=== PATIENT | male | born 1975 | race Asian ===

== ENCOUNTER 2017-03-06 15:11 | Emergency (ER) | payer OTHER ==
[~2017-03-06] VITALS: Ht 175.3 cm; Wt 95.3 kg
[~2017-03-06 15:11] MED LIST: AMOX500C85 PO; CEPACOL CGH1 LOZ MT; CLOTCRE5 EX; LISI10TA11 PO; METFORMIN ER1000 MG; MUCINEX600 MG OR; Z-PAK PO
[2017-03-06 15:47] VITALS: BP 135/78; TEMP 99.2
== END 2017-03-06 15:47 | disposition home or self-care (01) ==
LOC: ED 15:11
DX: R19.7 Diarrhea, unspecified (principal); K52.9 Noninfective gastroenteritis and colitis, unspecified
CPT/HCPCS: 99281

== ENCOUNTER 2017-04-22 11:07 | Outpatient (CLI) | payer OTHER ==
[2017-04-22 12:19] LABS: PLATELET COUNT 463 K/uL (142-355)
[2017-04-22 12:43] LABS: POTASSIUM 5.6 mmol/L (3.6-5.2); SODIUM 140 mmol/L (136-145)
== END 2017-04-22 17:53 | disposition home or self-care (01) ==
LOC: LABW 11:07
PROVIDERS: Internal Medicine
DX: I10 Essential (primary) hypertension (principal); R42 Dizziness and giddiness; E11.9 Type 2 diabetes mellitus without complications; M10.9 Gout, unspecified
CPT/HCPCS: 36415; 80053; 80061; 81000; 82043; 82570; 83036; 84443; 84550; 85027

== ENCOUNTER 2018-01-28 09:08 | Outpatient (CLI) | payer OTHER | END 2018-01-28 19:21 | disposition home or self-care (01) | LOC: RAD 09:08 | DX: J40 Bronchitis, not specified as acute or chronic (principal); J01.00 Acute maxillary sinusitis, unspecified ==

== ENCOUNTER 2018-04-08 16:06 | Outpatient (CLI) | payer OTHER ==
[2018-04-08 16:18] LABS: PLATELET COUNT 454 K/uL (142-355)
[2018-04-08 16:46] LABS: POTASSIUM 4.9 mmol/L (3.6-5.2)
== END 2018-04-08 19:21 | disposition home or self-care (01) ==
LOC: LABW 16:06
PROVIDERS: Physician Assistant
DX: R25.2 Cramp and spasm (principal); E11.9 Type 2 diabetes mellitus without complications
CPT/HCPCS: 36415; 80053; 83036; 84439; 84443; 85027

== ENCOUNTER 2018-10-24 09:52 | Outpatient (CLI) | payer OTHER ==
[2018-10-24 10:09] LABS: PLATELET COUNT 471 K/uL (142-355)
[2018-10-24 10:31] LABS: POTASSIUM 4.7 mmol/L (3.6-5.2)
== END 2018-10-24 20:22 | disposition home or self-care (01) ==
LOC: LABW 09:52
PROVIDERS: Physician Assistant
DX: I10 Essential (primary) hypertension (principal); E11.9 Type 2 diabetes mellitus without complications; D50.9 Iron deficiency anemia, unspecified
CPT/HCPCS: 36415; 80053; 83036; 84153; 85027

== ENCOUNTER 2023-03-30 19:09 | Emergency (ER) | payer OTHER ==
[~2023-03-30] VITALS: Ht 180.3 cm; Wt 106.6 kg
[2023-03-30 19:15] VITALS: TEMP 98.8
[2023-03-30 20:24] LABS: PLATELET COUNT 400 K/uL (142-355)
[2023-03-30 20:37] LABS: POTASSIUM 3.9 mmol/L (3.6-5.2)
[2023-03-30 21:25] VITALS: BP 156/87
== END 2023-03-30 21:25 | disposition home or self-care (01) ==
LOC: ED 19:09
PROVIDERS: Family Medicine
DX: M10.9 Gout, unspecified (principal)
CPT/HCPCS: 36415; 80048; 84550; 85027; 99283